=== PATIENT | female | born 1990 | race Caucasian/White ===

== ENCOUNTER 2017-12-07 17:18 | Emergency (ER) | payer SELFPAY ==
[~2017-12-07] VITALS: Ht 167.6 cm; Wt 72.6 kg
[~2017-12-07 17:18] MED LIST: FERR-57 PO; IBP600T1 PO; PREN1TAB39; PREN1TAB39 PO; [UNRECOGNIZED DRUG - CODE]
--- NOTE | 2017-12-07 17:42 | ED GU-Female ---
General Chief Complaint: -Female Stated Complaint: 14 WKS PREG, DIZZY AND CRAMPS Nursing Triage Note: states having yellow vaginal discharge and feels like she is unable to empty bladder times 2 days. states pain was so bad today she "passed out" for a few minutes Nursing Sepsis Screen: No Definite Risk Source: patient Exam Limitations: no limitations History of Present Illness Time seen by provider: 17:40 Initial Comments To ER with reports of being dizzy, abdominal cramping, nausea, urinary frequency but only dribbling a small amount when she goes. She is 14 weeks gestation. Ab1. Denies vaginal bleeding. She also complains of a whitish yellow vaginal discharge Timing/Duration: constant, yesterday Severity/Quality: cramping Location: suprapubic Activities at Onset: none Associated Symptoms: dysuria Allergies and Home Medications Allergies Coded Allergies: No Known Drug Allergies (Unverified , 04/02/09) Home Medications Ferrous Sulfate 325 Mg Tablet, 325 MG PO DAILY, (Reported) Ibuprofen 600 Mg Tab, 600 MG PO Q6H PRN, (Reported) Vits W-Ca,Fe,Fa(<1MG) 1 Each Tablet, 1 TAB PO DAILY, (Reported) Constitutional: see HPI EENTM: see HPI Respiratory: no symptoms reported Cardiovascular: no symptoms reported Genitourinary: see HPI Musculoskeletal: no symptoms reported Skin: no symptoms reported Past Hmdcxid-Nbikuo-Wigryo Hx Patient Social History Alcohol Use: Denies Use Recreational Drug Use: No Smoking Status: Current Everyday Smoker 2nd Hand Smoke Exposure: No Recent Foreign Travel: No Contact w/Someone Who Travel: No Recent Infectious Disease Expo: No Recent Hopitalizations: No (dental problems in 1998) Physical Abuse: No Sexual Abuse: No Mistreated: No Fear: No Immunizations Up To Date Tetanus Booster (TDap): More than 5yrs Surgeries History of Surgeries: Yes Surgeries: Gallbladder Respiratory History of Respiratory Disorde: No Cardiovascular History of Cardiac Disorders: No Neurological History of Neurological Disord: No Reproductive System Hx : 3 Hx Para: 4 Hx Reproductive Disorders: Yes Sexually Transmitted Disease: Yes (chlamydia) Genitourinary History of Genitourinary Disor: No Gastrointestinal History of Gastrointestinal Di: No Musculoskeletal History of Musculoskeletal Dis: No Endocrine History of Endocrine Disorders: No Psychosocial History of Psychiatric Problem: No Suicide Risk Score: 0 Integumentary History of Skin or Integumenta: No Blood Transfusions History of Blood Disorders: No Physical Exam Vital Signs Vital Sign - Last 12Hours 12/07/17 17:27 Temp 97.0 Pulse 81 Resp 18 B/P (MAP) 125/72 (89) Pulse Ox 99 Capillary Refill : Less Than 3 Seconds General Appearance: WD/WN, no apparent distress HEENT: PERRL/EOMI, normal ENT inspection Neck: non-tender, full range of motion Respiratory: normal breath sounds, no respiratory distress, no accessory muscle use Gastrointestinal: normal bowel sounds, non tender, soft Pelvic: other (pelvic exam done with Lily Sorto RN are at the bedside. There is a moderate amount of purulent material coming from the cervix yellowish green in color.) Extremities: normal range of motion, non-tender Neurologic/Psychiatric: alert, normal mood/affect, oriented x 3 Skin: normal color, warm/dry Progress/Results/Core Measures Suspected Sepsis Recent Fever Within 48 Hours: No Infection Criteria Present: None New/Unexplained Altered Menta: No Sepsis Screen: No Definite Risk Sepsis Diagnosis: SIRS Temperature:97.0 Pulse: 81 Respiratory Rate: 18 Laboratory Tests 12/07/17 17:49: White Blood Count 9.7 Blood Pressure 125 /72 Mean: 89 Laboratory Tests 12/07/17 17:49: Creatinine 0.75, Platelet Count 332, Total Bilirubin 0.3 Results/Orders Lab Results Laboratory Tests Test 12/07/17 17:27 12/07/17 17:49 12/07/17 18:45 Range/Units Urine Color YELLOW Urine Clarity VERY CLOUDY H Urine pH 8 5-9 Urine Specific Two Dot 1.015 L 1.016-1.022 Urine Protein NEGATIVE NEGATIVE Urine Glucose (UA) NEGATIVE NEGATIVE Urine Ketones NEGATIVE NEGATIVE Urine Nitrite NEGATIVE NEGATIVE Urine Bilirubin NEGATIVE NEGATIVE Urine Urobilinogen NORMAL NORMAL MG/DL Urine Leukocyte Esterase 1+ H NEGATIVE Urine RBC (Auto) NEGATIVE NEGATIVE Urine RBC NONE /HPF Urine WBC 0-2 /HPF Urine Squamous Epithelial Cells 2-5 /HPF Urine Crystals PRESENT H /LPF Urine Amorphous Sediment LARGE RENÉ PHOSPHATE H /LPF Urine Bacteria NONE /HPF Urine Casts NONE /LPF Urine Mucus NEGATIVE /LPF Urine Culture Indicated NO Urine Opiates Screen NEGATIVE NEGATIVE Urine Oxycodone Screen NEGATIVE NEGATIVE Urine Methadone Screen NEGATIVE NEGATIVE Urine Propoxyphene Screen NEGATIVE NEGATIVE Urine Barbiturates Screen NEGATIVE NEGATIVE Ur Tricyclic Antidepressants Screen NEGATIVE NEGATIVE Urine Phencyclidine Screen NEGATIVE NEGATIVE Urine Amphetamines Screen NEGATIVE NEGATIVE Urine Methamphetamines Screen NEGATIVE NEGATIVE Urine Benzodiazepines Screen NEGATIVE NEGATIVE Urine Cocaine Screen NEGATIVE NEGATIVE Urine Cannabinoids Screen NEGATIVE NEGATIVE White Blood Count 9.7 4.3-11.0 10^3/uL Red Blood Count 3.69 L 4.35-5.85 10^6/uL Hemoglobin 11.7 11.5-16.0 G/DL Hematocrit 32 L 35-52 % Mean Corpuscular Volume 88 80-99 FL Mean Corpuscular Hemoglobin 32 25-34 PG Mean Corpuscular Hemoglobin Concent 36 32-36 G/DL Red Cell Distribution Width 12.6 10.0-14.5 % Platelet Count 332 130-400 10^3/uL Mean Platelet Volume 9.0 7.4-10.4 FL Neutrophils (%) (Auto) 77 H 42-75 % Lymphocytes (%) (Auto) 17 12-44 % Monocytes (%) (Auto) 5 0-12 % Eosinophils (%) (Auto) 0 0-10 % Basophils (%) (Auto) 0 0-10 % Neutrophils # (Auto) 7.5 1.8-7.8 X 10^3 Lymphocytes # (Auto) 1.7 1.0-4.0 X 10^3 Monocytes # (Auto) 0.5 0.0-1.0 X 10^3 Eosinophils # (Auto) 0.0 0.0-0.3 10^3/uL Basophils # (Auto) 0.0 0.0-0.1 10^3/uL Sodium Level 138 135-145 MMOL/L Potassium Level 4.1 3.6-5.0 MMOL/L Chloride Level 109 H 98-107 MMOL/L Carbon Dioxide Level 18 L 21-32 MMOL/L Anion Gap 11 5-14 MMOL/L Blood Urea Nitrogen 9 7-18 MG/DL Creatinine 0.75 0.60-1.30 MG/DL Estimat Glomerular Filtration Rate > 60 BUN/Creatinine Ratio 12 Glucose Level 91 70-105 MG/DL Calcium Level 9.2 8.5-10.1 MG/DL Total Bilirubin 0.3 0.1-1.0 MG/DL Aspartate Amino Transf (AST/SGOT) 14 5-34 U/L Alanine Aminotransferase (ALT/SGPT) 16 0-55 U/L Alkaline Phosphatase 61 40-136 U/L Total Protein 6.5 6.4-8.2 GM/DL Albumin 3.6 3.2-4.5 GM/DL Human Chorionic Gonadotropin, Quant 51335 H <5 MIU/ML My Orders Orders - HEDY REAVES APRN Cbc With Automated Diff (12/07/17 17:23) Comprehensive Metabolic Panel (12/07/17 17:23) Ua Culture If Indicated (12/07/17 17:23) Drug Screen Stat (Urine) (12/07/17 17:23) Hcg,Quantitative (12/07/17 17:23) Wet Prep (12/07/17 18:15) Neisseria Gonorrhea Dna (12/07/17 18:15) Chlamydia Dna (12/07/17 18:15) Genital Culture (12/07/17 18:15) Vital Signs/I&O Vital Sign - Last 12Hours 12/07/17 17:27 Temp 97.0 Pulse 81 Resp 18 B/P (MAP) 125/72 (89) Pulse Ox 99 Capillary Refill : Less Than 3 Seconds Blood Pressure Mean: 89 Progress Note : Progress Note Intrauterine seen at the bedside by me on bedside ultrasound. heart rate 154. Departure Impression Impression: Primary Impression: Vaginal discharge during Disposition: 01 HOME, SELF-CARE Condition: Stable Departure-Patient Inst. Decision time for Depature: 17:42 Referrals: [facility] (PCP) Primary Care Physician Patient Instructions: NO INSTRUCTIONS GIVEN Add. Discharge Instructions: 1. 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 Return to ER for concerns 3. All discharge instructions reviewed with patient and/or family. Voiced understanding. HEDY REAVES APRN Dec 07, 2017 17:42
[2017-12-07 17:44] LABS: BILIRUBIN,URINE NEGATIVE (NEGATIVE); CLARITY,URINE VERY CLOUDY; COLOR,URINE YELLOW; GLUCOSE, URINE (UA) NEGATIVE (NEGATIVE); KETONES,URINE NEGATIVE (NEGATIVE); LEUKOCYTE ESTERASE ,URINE 1+ (NEGATIVE); NITRITE,URINE NEGATIVE (NEGATIVE); PH,URINE 8 (5-9); PROTEIN,URINE NEGATIVE (NEGATIVE); UROBILINOGEN,URINE NORMAL (NORMAL)
[2017-12-07 17:52] LABS: AMORPHOUS SEDIMENT,UR LARGE AMOR PHOSPHATE /LPF; WBC,URINE 0-2 /HPF
[2017-12-07 17:57] LABS: AMPHETAMINE SCREEN, URINE NEGATIVE (NEGATIVE); BARBITURATE SCREEN URINE NEGATIVE (NEGATIVE); BENZODIAZEPINES SCREEN URINE NEGATIVE (NEGATIVE); CANNABINOID SCREEN, URINE NEGATIVE (NEGATIVE); COCAINE SCREEN URINE NEGATIVE (NEGATIVE); METHADONE STAT NEGATIVE (NEGATIVE); METHAMPHETAMINE SCREEN URINE S NEGATIVE (NEGATIVE); OPIATE SCREEN URINE NEGATIVE (NEGATIVE); OXYCODONE STAT NEGATIVE (NEGATIVE); PROPOXYPHENE STAT NEGATIVE (NEGATIVE); TRICYCLIC ANTIDEPRESSANTS SCRE NEGATIVE (NEGATIVE)
[2017-12-07 18:01] LABS: BASOPHILS % (AUTO) 0 % (0-10); EOSINOPHILS % (AUTO) 0 % (0-10); HEMATOCRIT 32 % (35-52); HEMOGLOBIN 11.7 G/DL (11.5-16.0); LYMPHOCYTES # (AUTO) 1.7 X 10^3 (1.0-4.0); LYMPHOCYTES % (AUTO) 17 % (12-44); MEAN CORPUSCULAR HEMOGLOBIN 32 PG (25-34); MEAN CORPUSCULAR HGB CONC 36 G/DL (32-36); MEAN CORPUSCULAR VOLUME 88 FL (80-99); MONOCYTES # (AUTO) 0.5 X 10^3 (0.0-1.0); MONOCYTES % (AUTO) 5 % (0-12); NEUTROPHILS # (AUTO) 7.5 X 10^3 (1.8-7.8); NEUTROPHILS % (AUTO) 77 % (42-75); PLATELET COUNT 332 10^3/uL (130-400); RED BLOOD COUNT 3.69 10^6/uL (4.35-5.85); RED CELL DISTRIBUTION WIDTH 12.6 % (10.0-14.5); WHITE BLOOD COUNT 9.7 10^3/uL (4.3-11.0)
[2017-12-07 18:22] LABS: ALANINE AMINOTRANSFERASE 16 U/L (0-55); ALBUMIN 3.6 GM/DL (3.2-4.5); ALKALINE PHOSPHATASE 61 U/L (40-136); BILIRUBIN,TOTAL 0.3 MG/DL (0.1-1.0); BUN/CREATININE RATIO 12; CALCIUM 9.2 MG/DL (8.5-10.1); CARBON DIOXIDE 18 MMOL/L (21-32); CHLORIDE 109 MMOL/L (98-107); CREATININE SERUM 0.75 MG/DL (0.60-1.30); GFR ESTIMATED > 60; GLUCOSE 91 MG/DL (70-105); POTASSIUM 4.1 MMOL/L (3.6-5.0); SODIUM 138 MMOL/L (135-145); TOTAL PROTEIN 6.5 GM/DL (6.4-8.2)
[2017-12-07] MEDS ORDERED: LIDOCAINE 1% INJ 20 ML (XYLOCAINE) VIAL INJ ONE (19:15)
[2017-12-07] MEDS ORDERED: cefTRIAXone 1 GM (ROCEPHIN) VIAL IM ONE (19:15)
[2017-12-07] MEDS ORDERED: AZITHROMYCIN 250 MG TAB (ZITHROMAX) PO SCH (19:15)
[2017-12-07] MEDS ORDERED: LIDOCAINE 1% INJ 50 ML (XYLOCAINE) VIAL ONE (19:33)
[2017-12-07 19:59] VITALS: BP 124/67
== END 2017-12-07 19:58 | disposition home or self-care (01) ==
LOC: EDUNIT# 17:18 → ER 17:21
DX: O99.89 Other specified diseases and conditions complicating pregnancy, childbirth and the puerperium (principal); N89.8 Other specified noninflammatory disorders of vagina; Z3A.14 14 weeks gestation of pregnancy
CPT/HCPCS: 36415; 80053; 80306; 81000; 84702; 85025; 87070; 87210; 87491; 87591; 99284

== ENCOUNTER → 2017-12-19 | Outpatient (CLI) | payer SELFPAY ==
--- NOTE | 2017-12-19 13:19 | Diagnostic Imaging Report ---
INDICATION: Evaluation for size and dates. TECHNIQUE: Multiple real-time grayscale images were obtained over the gravid uterus. COMPARISON: None. FINDINGS: There is presence of an early viable intrauterine , currently in a breech presentation. Placenta is anterior and without evidence for previa. Normal amount of amniotic fluid appears to be present. Cervical length is 4.7 cm. anatomical assessment is not complete. No definitive abnormality is suggested. Biometrical measurements are as follows: Biparietal 3.37 cm, age 16 weeks 4 days. Head circumference 12.87 cm, age 16 weeks 4 days. Abdominal circumference 11.62 cm, age 17 weeks 3 days. Femur length 2.31 cm, age 17 weeks 0 days. Sonographic estimate age: 17 weeks 0 days. Sonographic estimated date of delivery: 05-29-18. Estimated Weight: 181 gm (+/- 26 gm). LMP percentile: unknown%. heart rate: 152 beats per minute. number: 1 of 1. Maternal adnexa is not imaged. IMPRESSION: Early viable intrauterine with estimated age at 17 weeks 0 days. Sonographic estimated date of delivery of May 29, 2018. Dictated by: Dictated on workstation # [id number]
== END ==
LOC: RAD 10:07
PROVIDERS: ATTEND Family Medicine
DX: Z34.82 Encounter for supervision of other normal pregnancy, second trimester (principal); Z3A.17 17 weeks gestation of pregnancy
CPT/HCPCS: 76805

== ENCOUNTER → 2018-02-04 | Outpatient (CLI) | payer MEDICAID ==
--- NOTE | 2018-02-04 13:30 | Diagnostic Imaging Report ---
INDICATION: Supervision of normal . TECHNIQUE: Multiple real-time grayscale images were obtained over the gravid uterus. COMPARISON: 12/19/2017. FINDINGS: There is a single live fetus in a cephalic presentation. The placenta is anterior. Cervical length is 5.2 cm. The amniotic fluid volume appears within normal limits. survey demonstrates kidneys, bladder, and stomach to be unremarkable. The intracranial structures are unremarkable. There is a four-chamber heart. heart rate was recorded at 143 beats per minute. There is a three-vessel cord with normal cord insertion. The spine is unremarkable. Biometrical measurements are as follows: Biparietal 5.42 cm, age 22 weeks 4 days. Head circumference 20.39 cm, age 22 weeks 4 days. Abdominal circumference 18.63 cm, age 23 weeks 3 days. Femur length 4.59 cm, age 25 weeks 2 days. Sonographic estimate age: 23 weeks 4 days. Sonographic estimated date of delivery: 05/30/2018. Estimated Weight: 646 gm (+/- 94 gm). LMP percentile: 81%. heart rate: 143 beats per minute. number: 1 of 1. IMPRESSION: Single live IUP of approximately 23-24 weeks gestational age demonstrating normal interval growth when compared with prior exam from 12/19/2017. Dictated by: Dictated on workstation # [id number]
== END ==
LOC: RAD 11:43
PROVIDERS: ATTEND Family Medicine
DX: Z34.82 Encounter for supervision of other normal pregnancy, second trimester (principal); Z3A.23 23 weeks gestation of pregnancy
CPT/HCPCS: 76805

== ENCOUNTER 2018-03-17 21:52 | Outpatient (CLI) | payer MEDICAID ==
[~2018-03-17] VITALS: Ht 170.2 cm; Wt 86.2 kg
[2018-03-17 22:07] VITALS: BP 130/79
[2018-03-17 22:21] LABS: BILIRUBIN,URINE NEGATIVE (NEGATIVE); CLARITY,URINE CLEAR; COLOR,URINE YELLOW; GLUCOSE, URINE (UA) NEGATIVE (NEGATIVE); KETONES,URINE NEGATIVE (NEGATIVE); LEUKOCYTE ESTERASE ,URINE 3+ (NEGATIVE); NITRITE,URINE NEGATIVE (NEGATIVE); PH,URINE 6 (5-9); PROTEIN,URINE NEGATIVE (NEGATIVE); UROBILINOGEN,URINE NORMAL (NORMAL)
[2018-03-17 22:35] LABS: AMORPHOUS SEDIMENT,UR RARE AMOR URATES /LPF; BACTERIA,URINE TRACE /HPF
[2018-03-17] MEDS ORDERED: ACET325T38 PO (22:45)
--- NOTE | 2018-03-18 11:50 | Physician Query-Final Dx ---
JUN WOODWARD 03/18/18 1150: Clinic Account Progress/Dx Physician Query: Please give diagnosis Date of Service Mar 17, 2018 at 21:52 MANPREET RICHARD MD 03/19/18 0925: Clinic Account Progress/Dx DIAGNOSIS: Diagnosis 30 week gestation Decreased movement with normal heart tracing and good movement while on Labor and Delivery JUN WOODWARD Mar 18, 2018 11:50 MANPREET RICHARD MD Mar 19, 2018 09:25
[2018-05-08] MEDS ORDERED: RANI150T46 PO (16:51)
[2018-05-21] MEDS ORDERED: DOCU100C37 PO (14:54)
[2018-05-21] MEDS ORDERED: IBUP-844 PO (14:54)
[2018-05-21] MEDS ORDERED: FERR325T18 PO (14:56)
== END 2018-03-17 22:53 | disposition home or self-care (01) ==
LOC: WSo 21:52 → LDRP 21:52 → WSo 22:53
PROVIDERS: ATTEND Family Medicine
DX: O36.8130 Decreased fetal movements, third trimester, not applicable or unspecified (principal); Z3A.30 30 weeks gestation of pregnancy
CPT/HCPCS: 81000; 87088; 99212

== ENCOUNTER 2018-04-04 20:38 | Outpatient (CLI) | payer MEDICAID ==
[~2018-04-04] VITALS: Ht 170.2 cm; Wt 85.0 kg
[~2018-04-04 20:38] MED LIST changes: +ACET325T38 PO
[2018-04-04 21:01] LABS: BILIRUBIN,URINE NEGATIVE (NEGATIVE); CLARITY,URINE SLIGHTLY CLOUDY; COLOR,URINE YELLOW; GLUCOSE, URINE (UA) NEGATIVE (NEGATIVE); KETONES,URINE 1+ (NEGATIVE); LEUKOCYTE ESTERASE ,URINE 2+ (NEGATIVE); NITRITE,URINE NEGATIVE (NEGATIVE); PH,URINE 6 (5-9); PROTEIN,URINE 2+ (NEGATIVE); UROBILINOGEN,URINE NORMAL (NORMAL)
[2018-04-04 21:10] LABS: BACTERIA,URINE TRACE /HPF; SQUAMOUS EPITHELIAL CELL,UR 25-50 /HPF
[2018-04-04 21:49] VITALS: BP 126/76
--- NOTE | 2018-04-07 20:08 | Physician Query-Final Dx ---
SANCHEZ VEGA 04/07/18 2008: Clinic Account Progress/Dx Physician Query: Please give diagnosis Date of Service April 04, 2018 at 20:38 TAL MORGAN DO 04/12/18 0935: Clinic Account Progress/Dx DIAGNOSIS: Diagnosis see note Progress Note: Send to Dr. 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
--- NOTE | 2018-04-14 07:45 | Physician Query-Final Dx ---
ELBERT GOMEZ 04/14/18 0745: Clinic Account Progress/Dx Physician Query: Please give diagnosis Date of Service April 04, 2018 at 20:38 Progress Note: Elbert [phone] TREVOR COOK MD 04/21/18 0728: Clinic Account Progress/Dx DIAGNOSIS: Diagnosis 1. IUP at 32 weeks gestation 2. Passage of mucous (mucous plug possibly) from vagina 3. Amniotic membranes intact 4. non-labor ELBERT GOMEZ April 14, 2018 07:45 TREVOR COOK MD April 21, 2018 07:28
[2018-05-08] MEDS ORDERED: RANI150T46 PO (16:51)
== END 2018-04-04 21:54 | disposition home or self-care (01) ==
LOC: LDRP 20:38 → WSo 20:38
PROVIDERS: ATTEND Family Medicine
DX: O26.893 Other specified pregnancy related conditions, third trimester (principal); N88.8 Other specified noninflammatory disorders of cervix uteri; Z3A.32 32 weeks gestation of pregnancy
CPT/HCPCS: 36415; 81000; 87088; 89060; 99214

== ENCOUNTER 2018-05-08 14:12 | Outpatient (CLI) | payer MEDICAID ==
[~2018-05-08] VITALS: Ht 167.6 cm; Wt 84.4 kg
[2018-05-08 15:12] LABS: HEMOGLOBIN 10.4 G/DL (11.5-16.0); MEAN PLATELET VOLUME 8.5 FL (7.4-10.4); RED BLOOD COUNT 3.35 10^6/uL (4.35-5.85); RED CELL DISTRIBUTION WIDTH 14.5 % (10.0-14.5); WHITE BLOOD COUNT 9.1 10^3/uL (4.3-11.0)
[2018-05-08 15:37] LABS: ALANINE AMINOTRANSFERASE 13 U/L (0-55); ALBUMIN 3.2 GM/DL (3.2-4.5); ALKALINE PHOSPHATASE 114 U/L (40-136); BILIRUBIN,TOTAL 0.3 MG/DL (0.1-1.0); BUN/CREATININE RATIO 10; CALCIUM 8.5 MG/DL (8.5-10.1); CARBON DIOXIDE 17 MMOL/L (21-32); CHLORIDE 109 MMOL/L (98-107); CREATININE SERUM 0.62 MG/DL (0.60-1.30); GFR ESTIMATED > 60; GLUCOSE 77 MG/DL (70-105); POTASSIUM 3.9 MMOL/L (3.6-5.0); SODIUM 137 MMOL/L (135-145)
[2018-05-08 16:24] LABS: BILIRUBIN,URINE NEGATIVE (NEGATIVE); COLOR,URINE YELLOW; GLUCOSE, URINE (UA) NEGATIVE (NEGATIVE); KETONES,URINE NEGATIVE (NEGATIVE); LEUKOCYTE ESTERASE ,URINE 1+ (NEGATIVE); NITRITE,URINE NEGATIVE (NEGATIVE); PH,URINE 6 (5-9); PROTEIN,URINE NEGATIVE (NEGATIVE); UROBILINOGEN,URINE NORMAL (NORMAL)
[2018-05-08 16:25] LABS: CLARITY,URINE CLEAR
[2018-05-08 16:27] LABS: BACTERIA,URINE NEGATIVE /HPF; WBC,URINE RARE /HPF
--- NOTE | 2018-05-08 16:32 | Diagnostic Imaging Report ---
INDICATION: Right abdominal pain. TECHNIQUE: Multiple real-time grayscale images were obtained over the gravid uterus. COMPARISON: 12/19/2017 and 02/04/2018. FINDINGS: The previous OB ultrasound exam of 02/04/2018 noted a single live intrauterine fetus of approximately 23-24 weeks gestation. On this exam, the fetus is again visualized. The fetus is cephalic in presentation. heart motion is noted and a rate of 134 bpm is recorded. There are no obvious abnormalities identified. The biophysical profile score is 8 out of 8 and within normal limits. The growth parameters average 34 weeks 6 days +/- 3.5 weeks. The estimated weight is in the 19th percentile. The placenta is anterior and there is no previa. The amniotic fluid volume is at the lowest end of normal with an ANGELA of 8.0 cm (normal 8-22 cm). During the course of the exam, hydronephrosis of the maternal right kidney was noted. Whether this is secondary to the so-called "hydronephrosis of " or whether there is partial obstruction of the right collecting system is not certain. Clinical follow-up is recommended. IMPRESSION: 1. There is single live fetus of approximately 37 weeks gestation +/- 3.5 weeks. The EDC remains May 29, 2018. 2. There are no obvious abnormalities identified. 3. The biophysical profile score is 8 out of 8 and within normal limits. 4. The growth parameters have progressed as expected since the prior exam tending towards the low side of normal. 5. There is hydronephrosis of the maternal kidney on the right. This is of uncertain etiology. Clinical follow-up is recommended. Biometrical measurements are as follows: Biparietal 8.7 cm, age 35 weeks 3 days. Head circumference 32.5 cm, age 36 weeks 6 days. Abdominal circumference 31.2 cm, age 35 weeks 1 days. Femur length 7.0 cm, age 35 weeks 6 days. Sonographic estimate age: 35 weeks 6 days. Sonographic estimated date of delivery: 06/06/18. Estimated Weight: 2693 gm (+/- 393 gm). LMP percentile: 19%. heart rate: 134 beats per minute. number: 1 of 1. Dictated by: Dictated on workstation # [id number]
[2018-05-08] MEDS ORDERED: RANI150T46 PO ×2 (16:51)
--- NOTE | 2018-05-12 15:44 | Physician Query-Final Dx ---
SANCHEZ VEGA 05/12/18 1543: Clinic Account Progress/Dx Physician Query: Please give diagnosis Date of Service May 08, 2018 at 14:12 GOMEZ GUZMAN DO 05/12/18 1752: Clinic Account Progress/Dx DIAGNOSIS: Diagnosis Supervision of other normal , third trimester Nausea and Vomiting in , third trimester Right Upper Quadrant Abdominal Pain, third Trimester Threatened Labor Decreased Movement SANCHEZ VEGA May 12, 2018 15:43 GOMEZ GUZMAN DO May 12, 2018 17:52
== END 2018-05-08 16:55 | disposition home or self-care (01) ==
LOC: WSo 14:12 → LDRP 14:13 → WSo 16:55
PROVIDERS: ATTEND Family Medicine
DX: O36.8130 Decreased fetal movements, third trimester, not applicable or unspecified (principal); O47.1 False labor at or after 37 completed weeks of gestation; R10.11 Right upper quadrant pain; O21.2 Late vomiting of pregnancy; Z3A.37 37 weeks gestation of pregnancy
CPT/HCPCS: 36415; 76805; 76819; 80053; 81000; 85027; 99213

== ENCOUNTER 2018-05-13 14:04 | Outpatient (CLI) | payer MEDICAID ==
[~2018-05-13 14:04] MED LIST changes: +RANI150T46 PO
[2018-05-13 15:10] VITALS: BP 110/62
--- NOTE | 2018-05-13 18:58 | Diagnostic Imaging Report ---
INDICATION: Small for dates. TECHNIQUE: Multiple real-time grayscale images were obtained over the gravid uterus in various projections. FINDINGS: There is a single live fetus in a vertex presentation. heart rate was recorded at 135 beats per minute. Placenta is anterior. Amniotic fluid index is 11.3 cm. Overall biophysical profile score is normal at 8 out of 8. IMPRESSION: Biophysical profile score of 8 out of 8. Dictated by: Dictated on workstation # [id number]
== END 2018-05-13 15:15 | disposition home or self-care (01) ==
LOC: RAD 14:04
PROVIDERS: ATTEND Family Medicine
DX: O36.5930 Maternal care for other known or suspected poor fetal growth, third trimester, not applicable or unspecified (principal); O28.8 Other abnormal findings on antenatal screening of mother; Z3A.00 Weeks of gestation of pregnancy not specified
CPT/HCPCS: 76819

== ENCOUNTER 2018-05-20 12:10 | Inpatient (IN) | payer MEDICAID ==
[~2018-05-20] VITALS: Ht 170.2 cm; Wt 83.5 kg
[2018-05-20] VITALS (30 sets, daily range): BP systolic 104–142; BP diastolic 56–77
--- OUTSIDE RECORDS SUMMARY | 2018-05-20 12:18 | XMS REPORT ---
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 12822490 Problem Heartburn R12 Active 74910327 Problem Igdbt-eqd-qlpyo fetus, third trimester O36.5930 Active 916779131 Problem Amniotic fluid index borderline low O28.8 Active 77168134 Problem Encounter for supervision of other normal , third trimester Z34.83 Active 11791203 Problem Smoking (tobacco) complicating , third trimester O99.333 Active 454436059 Problem Other specified related conditions, third trimester O26.893 Active 906880896 Problem Nausea and vomiting during O21.9 Active 48159872 ALLERGIES Substance Reaction Event Type Date Status coconut Unknown Non Drug Allergy Nov, Active ENCOUNTERS Encounter Location Date Diagnosis [facility] [id number] [place] [address] [phone] May, [facility] [id number] [place] [address] [phone] May, Encounter for supervision of normal in multigravida in third trimester Z34.83 ; Supervision of with history of infertility in third trimester O09.03 ; 37 weeks gestation of Z3A.37 and Smoking ( tobacco) complicating , third trimester O99.333 [facility] [id number] [place] [address] [id number] May, Wctnr-azf-nyerp fetus, third trimester O36.5930 and Amniotic fluid index borderline low O28.8 [facility] [id number] [place] [address] [phone] May, [address] [id number] [id number] May, Encounter for supervision of other normal , third trimester Z34.83 ; with history of infertility in third trimester O09.03 ; Smoking (tobacco) complicating , third trimester O99.333 ; Other specified related conditions, third trimester O26.893 ; Heartburn R12 ; Nausea and vomiting during O21.9 and Encounter for screening for Streptococcus B Z36.85 [id number] [place] [address] [phone] April, Encounter for supervision of other normal , third trimester Z34.83 ; with history of infertility in third trimester O09.03 ; Smoking (tobacco) complicating , third trimester O99.333 ; Other specified related conditions, third trimester O26.893 ; Heartburn R12 ; Nausea and vomiting during O21.9 ; Other specified related conditions, unspecified trimester O26.899 and Diarrhea, unspecified R19.[address] [place] [address] [id number] April, 32 weeks gestation of Z3A.32 and Normal in third trimester Z34.93 [id number] [place] [address] [phone] April, [id number] [place] [address] [id number] Mar, Acute cystitis during in third trimester O23.13 ; CVA tenderness M54.9 ; Encounter for immunization Z23 and 30 weeks gestation of Z3A.[address] [address] [phone] Mar, Encounter for supervision of other normal , third trimester Z34.83 ; Smoking (tobacco) complicating , third trimester O99.333 ; with history of infertility in third trimester O09.03 ; Other specified related conditions, second trimester O26.892 and Heartburn R12 [address] [place] [address] [phone] Jan, with history of infertility in third trimester O09.03 ; Encounter for supervision of other normal , third trimester Z34.83 and Smoking (tobacco) complicating , third trimester O99.333 [id number] [place] [address] [phone] Jan, with history of infertility in second trimester O09.02 ; complicated by tobacco use in second trimester O99.332 ; Encounter for supervision of other normal , second trimester Z34.82 ; Other specified related conditions, second trimester O26.892 and Heartburn R12 [id number] [address] [phone] [id number] Jan, 2018 Encounter for supervision of other normal , second trimester Z34.82 ; with history of infertility in second trimester O09.02 ; complicated by tobacco use in second trimester O99.332 and Nausea and vomiting during prior to 22 weeks gestation O21.9 [id number] [place] [address] [id number] Dec, Encounter for supervision of other normal , second trimester Z34.82 [id number] [place] [address] [id number] Dec, Encounter for supervision of other normal , second trimester Z34.82 ; with history of infertility in second trimester O09.02 ; complicated by tobacco use in second trimester O99.332 and Nausea and vomiting during prior to 22 weeks gestation O21.9 [id number] [address] [id number] Nov, Encounter for supervision of other normal , first trimester Z34.81 ; Tobacco smoking affecting in first trimester O99.331 and Nausea and vomiting during prior to 22 weeks gestation O21.9 [id number] [address] [phone] Jun, Visit for TB skin test Z11.1 [facility] [id number] [place] [address] [phone] Jan, Dental examination Z01.20 [facility] [id number] [place] [address] [phone] Jul, [facility] [address] [id number] [place] [address] Jul, [facility] [place] [facility] [address] [id number] [place] [address] Jun, [facility] [place] [facility] [address] [id number] [place] [address] May, [facility] [place] [facility] [address] [id number] [place] [address] April, [facility] [place] [facility] [address] [id number] [place] [address] April, [facility] [place] [facility] [address] [id number] [place] [address] April, [facility] [place] [facility] [address] [id number] [place] [address] Nov, [facility] [place] [facility] [address] [id number] [place] [address] Nov, [facility] [place] [facility] [address] [id number] [place] [address] Oct, [facility] [place] [facility] [address] [id number] [place] [address] Oct, [facility] [place] [facility] [address] [id number] [place] [address] 05 Oct, 2009 [facility] [place] [facility] [address] [id number] [place] [address] 14 Sep, 2009 [facility] [place] [facility] [address] [id number] [place] [address] Sep, [facility] [place] [facility] [address] [id number] [place] [address] Jul, [facility] [place] [facility] [address] [id number] [place] [address] May, [facility] [place] [facility] [address] [id number] [place] [address] May, [facility] [address] [facility] [id number] [address] Mar, [facility] [address] [id number] [address] Jan, [facility] [address] [id number] [address] Dec, [facility] [id number] [address] Nov, [facility] [address] [id number] [address] Nov, [facility] [address] [id number] [address] Nov, IMMUNIZATIONS No Known Immunizations SOCIAL HISTORY Never Assessed REASON FOR VISIT OB-intake Karie CASSIYD PLAN OF CARE Activity Details Follow Up 3 Weeks Reason: VITAL SIGNS Height 67 in 2017-11-28 Weight 171 lbs 2017-11-28 Temperature 97.6 degrees Fahrenheit 2017-11-28 Heart Rate 100 bpm 2017-11-28 Respiratory Rate 19 2017-11-28 BMI 26.782 kg/m2 2017-11-28 Blood pressure systolic 124 mmHg 2017-11-28 Blood pressure diastolic 70 mmHg 2017-11-28 MEDICATIONS Medication Instructions Dosage Frequency Start Date End Date Duration Status Zofran 4 MG Orally 3 times a day 2 tablets 8h Nov, 30 day(s) Active Zofran 8 MG Orally every 8 hours as needed 1 tablet Nov, 30 day(s) Active 1 Active RESULTS Name Result Date Reference Range URINE DRUG SCREEN (IN HOUSE) 2017-11-28 Lot # [id number] Exp date 10/2018 Control + COCAINE neg AMPH neg MTD neg THC neg OPIATE neg BENZO neg PCP neg BAR neg OXY neg MAMP neg TCA neg BUP neg MDMA neg PROCEDURES Procedure Date Ordered Result Body Site DRUG TEST PRSMV DIR OPT OBS Nov 28, 2017 INSTRUCTIONS MEDICATIONS ADMINISTERED No Known Medications MEDICAL (GENERAL) HISTORY Type Description Date Surgical History gallbladder removed 01/2014 Surgical History dental surgery age 7
[2018-05-20] MEDS ORDERED: D5 LR IV SOLUTION 1,000 ML IV SCH (12:39)
[2018-05-20] MEDS: OXYTOCIN/NORMAL SALINE 500 ML IV SCH ×2 (13:04→19:30)
[2018-05-20 13:34] LABS: BASOPHILS % (AUTO) 0 % (0-10); EOSINOPHILS % (AUTO) 1 % (0-10); HEMATOCRIT 31 % (35-52); HEMOGLOBIN 10.4 G/DL (11.5-16.0); LYMPHOCYTES % (AUTO) 24 % (12-44); MEAN CORPUSCULAR HEMOGLOBIN 30 PG (25-34); MEAN CORPUSCULAR HGB CONC 34 G/DL (32-36); MEAN CORPUSCULAR VOLUME 90 FL (80-99); MEAN PLATELET VOLUME 8.7 FL (7.4-10.4); MONOCYTES # (AUTO) 0.5 X 10^3 (0.0-1.0); MONOCYTES % (AUTO) 6 % (0-12); NEUTROPHILS # (AUTO) 5.8 X 10^3 (1.8-7.8); NEUTROPHILS % (AUTO) 70 % (42-75); PLATELET COUNT 317 10^3/uL (130-400); RED BLOOD COUNT 3.43 10^6/uL (4.35-5.85); RED CELL DISTRIBUTION WIDTH 14.6 % (10.0-14.5); WHITE BLOOD COUNT 8.4 10^3/uL (4.3-11.0)
[2018-05-20 13:34] LABS: BILIRUBIN,URINE NEGATIVE (NEGATIVE); CLARITY,URINE CLEAR; COLOR,URINE YELLOW; GLUCOSE, URINE (UA) NEGATIVE (NEGATIVE); KETONES,URINE NEGATIVE (NEGATIVE); LEUKOCYTE ESTERASE ,URINE 1+ (NEGATIVE); NITRITE,URINE NEGATIVE (NEGATIVE); PH,URINE 5 (5-9); PROTEIN,URINE 1+ (NEGATIVE); UROBILINOGEN,URINE NORMAL (NORMAL)
[2018-05-20 13:43] LABS: BACTERIA,URINE TRACE /HPF
[2018-05-20] MEDS ORDERED: CATHETER FLUSH 10 ML SYR IV SCH ×2 (14:00→22:00)
[2018-05-20] MEDS ORDERED: LACTATED RINGERS 1,000 ML IV ONE (14:05)
[2018-05-20] MEDS ORDERED: SUFENTA 0.6MCG/ML BUPIVA 0.125 100 ML ONE (14:06)
[2018-05-20] MEDS ORDERED: fentaNYL INJECTION 100 MCG/2 ML AMP ONE (14:31)
[2018-05-20] MEDS ORDERED: BUPIVACAINE 0.25% 30 ML (SENSORCAINE) VIAL ONE (14:31)
[2018-05-20] MEDS ORDERED: LACTATED RINGERS 1,000 ML IV SCH (15:03)
[2018-05-20] MEDS ORDERED: EPIDURAL (SUFENTA 0.6MCG/ML BUPIVA 0.125%) 100 ML BAG EPI PRN (15:15)
[2018-05-20] MEDS ORDERED: diphenhydrAMINE 50 MG/ML INJ (BENADRYL) IV PRN (15:15)
[2018-05-20] MEDS ORDERED: METOCLOPRAMIDE INJ 10 MG/2 ML (REGLAN) IV PRN (15:15)
[2018-05-20] MEDS ORDERED: NALOXONE 0.4 MG/ML 1 ML (NARCAN) VIAL IV PRN ×2 (15:15)
[2018-05-20] MEDS ORDERED: ONDANSETRON 4 MG/2 ML (SDV) Z0FRAN IV PRN (15:15)
[2018-05-20] MEDS ORDERED: LIDOCAINE/EPI 2% 1:200,00 (XYLOCAINE) 10 ML VIAL ONE (19:06)
[2018-05-20] MEDS ORDERED: MISOPROSTOL 100 MCG (CYTOTEC) TAB PR ONE (19:10)
[2018-05-20] MEDS ORDERED: MISOPROSTOL 200 MCG (CYTOTEC) TABLET ONE (19:10)
[2018-05-20] MEDS ORDERED: IBUPROFEN 600 MG (MOTRIN) TAB PO ONE (19:56)
[2018-05-20] MEDS: IBUPROFEN 600 MG (MOTRIN) TAB PO SCH (19:56)
--- NOTE | 2018-05-20 19:58 | History & Physical-OB ---
OB - Chief Complaint & HPI Date/Time Date of Admission: Date of Admission: May 20, 2018 at 12:10 Time Seen by Provider: 17:00 Chief Complaint/History OB-Reason for Admission/Chief: Rupture of Membranes Hx : 4 Hx Para: 2 Hx Last Menstrual Period: 08/26/2017 Expected Date of Delivery: Jun 02, 2018 Gestational Age in Weeks: 38 Gestational Age in Days: 1 Admission Nurse Assessment Rev: Yes Allergies and Home Medications Allergies Coded Allergies: No Known Drug Allergies (Unverified , 04/02/09) Home Medications Acetaminophen 325 Mg Tablet, 325 MG PO PRN, (Reported) Vits W-Ca,Fe,Fa(<1MG) 1 Each Tablet, 1 TAB PO DAILY, (Reported) Ranitidine HCl 150 Mg Tablet, 150 MG PO BID, (Reported) Patient Home Medication List Home Medication List Reviewed: Yes OB - History Hx of Present Care: Yes Ultrasounds: Normal mid trimester US Obstetrical Complications: None Medical Complications: None Information Induced Hypertension: No Maternal Gestational Diabetes: No Hemorrhage: No Obstetrical History Hx : 4 Hx Para: 2 Hx # Term Pregnancies: 2 Hx # Pregnancies: 0 Number of Living Children: 2 Hx Termination: Yes Hx Total # of Abortions (Spona: 0 Hx Multiple Gestation: No Hx Ectopic : No Hx Stillbirth: No Hx Complication: No Hx Induced Hypertens: No Hx Maternal Gestational Diabet: No Hx Hemorrhage: No Delivery History Hx Dystocia: No Hx Forceps Assisted Delivery: No Hx Vacuum Extraction Assisted: No Hx Placenta Abnormality: No Hx Distress: No Hx Large For Gestational Age I: No Hx Small for Gestational Age I: No Hx Section: No Hx Vaginal Delivery Post C-Sec: No Hx Blood Disorders: No Adverse Rxn to Tranfusion: No Patient Past Medical History Secondary Infertility Tobacco Abuse Spontaneous Term Vaginal Delivery x2 Elective Termination of Anemia History of Chlamydia Social History/Family History HIV/AIDS: No Recent Infectious Disease Expo: No Sexually Transmitted Disease: Yes (chlamydia) Alcohol Use: Denies Use Recreational Drug Use: No Smoking Cessation: Current every day smoker 2nd Hand Smoke Exposure: No Immunizations Tetanus Booster (TDap): Less than 5yrs (03/25/18) Rubella: immune RPR/VDRL: Negative GBS Status: Negative HBsAG: Negative OB - Admission Exam Physical Exam Vitals: Vital Signs 05/20/18 05/20/18 05/20/18 05/20/18 14:30 17:30 18:30 19:00 Temp 96.7 Pulse 75 Resp 18 B/P (MAP) 141/60 (87) Pulse Ox 99 O2 Delivery Room Air HEENT: NCAT Heart: Rhythm Normal Lungs: Clear Abdomen: Gravid Extremities: Normal Reflexes: Normal Cervical Dilatation: 6cm Effacement: 75% Station: 0 Membranes: Ruptured Amniotic Fluid: Clear Heart Rate: 120's Accelerations: Accelerations Present Half-Way Variability: Average (6-25) Contractions on Admission: < 5 Minutes Apart Date/Time Contractions Began;: 05/20/18 Frequency of Contractions: irregular Duration: 30+ Intensity: Mild Labs Laboratory Tests Test 05/20/18 13:00 05/20/18 13:25 Range/Units Urine Color YELLOW Urine Clarity CLEAR Urine pH 5 5-9 Urine Specific [place] 1.025 H 1.016-1.022 Urine Protein 1+ H NEGATIVE Urine Glucose (UA) NEGATIVE NEGATIVE Urine Ketones NEGATIVE NEGATIVE Urine Nitrite NEGATIVE NEGATIVE Urine Bilirubin NEGATIVE NEGATIVE Urine Urobilinogen NORMAL NORMAL MG/DL Urine Leukocyte Esterase 1+ H NEGATIVE Urine RBC (Auto) 5+ H NEGATIVE Urine RBC NONE /HPF Urine WBC 2-5 /HPF Urine Squamous Epithelial Cells 10-25 H /HPF Urine Crystals NONE /LPF Urine Bacteria TRACE /HPF Urine Casts NONE /LPF Urine Mucus MODERATE H /LPF Urine Culture Indicated NO White Blood Count 8.4 4.3-11.0 10^3/uL Red Blood Count 3.43 L 4.35-5.85 10^6/uL Hemoglobin 10.4 L 11.5-16.0 G/DL Hematocrit 31 L 35-52 % Mean Corpuscular Volume 90 80-99 FL Mean Corpuscular Hemoglobin 30 25-34 PG Mean Corpuscular Hemoglobin Concent 34 32-36 G/DL Red Cell Distribution Width 14.6 H 10.0-14.5 % Platelet Count 317 130-400 10^3/uL Mean Platelet Volume 8.7 7.4-10.4 FL Neutrophils (%) (Auto) 70 42-75 % Lymphocytes (%) (Auto) 24 12-44 % Monocytes (%) (Auto) 6 0-12 % Eosinophils (%) (Auto) 1 0-10 % Basophils (%) (Auto) 0 0-10 % Neutrophils # (Auto) 5.8 1.8-7.8 X 10^3 Lymphocytes # (Auto) 2.0 1.0-4.0 X 10^3 Monocytes # (Auto) 0.5 0.0-1.0 X 10^3 Eosinophils # (Auto) 0.0 0.0-0.3 10^3/uL Basophils # (Auto) 0.0 0.0-0.1 10^3/uL OB - Assessment/Plan/Diagnosis Assessment Assessment: rupture of membranes Admission Dx Premature Rupture of Membranes Term 38 weeks gestation Hx Infertility complicated by Tobacco Abuse Admission Status: Inpatient Order (span 2 midnights) Reason for Inpatient Admission: Delivery Plan Plan: Other (Augementation) Other Plan Augmentation with pitocin per protocol. Epidural when desired. Anticipate vaginal delivery. GOMEZ GUZMAN DO May 20, 2018 19:58
[2018-05-20] MEDS ORDERED: WITCH HAZEL(TUCKS) 40 EA JAR ONE (20:00)
[2018-05-20] MEDS ORDERED: BENZOCAINE/MENTHOL (DERMOPLAST) 56 ML CAN TP ONE (20:00)
--- NOTE | 2018-05-20 20:16 | OB Labor & Delivery Record ---
L&D History Date of Service Date of Service: May 20, 2018 History Expected Date of Delivery: Jun 02, 2018 Gestational Age in Weeks: 38 Hx : 4 Hx Para: 2 Complications Events: Prematre Rupture Membrane, Routine care Operative Indications (Cesarea: N/A-Vaginal Delivery Intrapartal Events: None L&D Stage1 Stage One Onset of Labor - Date: May 20, 2018 Onset of Labor - Time: 13:00 Duration - Stage I: 5 hours Monitors and Tracing Monitor Mode: External Heart Rate: 120 Monitor Decelerations: Variable Station: -2 Snf Variability: Average (6-10) Presentation: Vertex Vital Signs VS - Last 72 Hours, by Label 05/20/18 05/20/18 05/20/18 05/20/18 12:30 13:00 13:45 14:00 Temp 96.1 Pulse 92 82 98 86 Resp 18 18 18 18 B/P (MAP) 122/75 (91) 124/70 (88) 125/72 (89) 115/61 (79) O2 Delivery Room Air Room Air Room Air Room Air 05/20/18 05/20/18 05/20/18 05/20/18 14:15 14:30 14:40 14:45 Temp 96.7 Pulse 73 75 77 83 Resp 18 18 18 18 B/P (MAP) 108/61 (77) 117/72 (87) 122/73 (89) 120/71 (87) Pulse Ox 100 100 O2 Delivery Room Air Room Air Room Air Room Air 05/20/18 05/20/18 05/20/18 05/20/18 14:50 14:55 15:00 15:15 Pulse 88 84 78 86 Resp 18 18 18 18 B/P (MAP) 116/64 (81) 116/65 (82) 122/66 (84) Pulse Ox 100 100 100 99 O2 Delivery Room Air Room Air Room Air Room Air 05/20/18 05/20/18 05/20/18 05/20/18 15:30 15:45 16:00 16:15 Pulse 67 81 70 75 Resp 18 18 18 18 B/P (MAP) 104/58 (73) 116/60 (78) 116/56 (76) 123/73 (90) Pulse Ox 98 98 99 100 O2 Delivery Room Air Room Air Room Air Room Air 05/20/18 05/20/18 05/20/18 05/20/18 16:30 16:45 17:00 17:15 Pulse 69 65 67 68 Resp 18 18 18 18 B/P (MAP) 116/66 (83) 119/71 (87) 122/71 (88) 128/75 (92) Pulse Ox 99 100 99 100 O2 Delivery Room Air Room Air Room Air Room Air 05/20/18 05/20/18 05/20/18 05/20/18 17:30 17:45 18:00 18:15 Pulse 64 76 77 75 Resp 18 18 18 18 B/P (MAP) 126/58 (80) 135/73 (93) 117/68 (84) 142/77 (98) Pulse Ox 99 O2 Delivery Room Air Room Air Room Air Room Air 05/20/18 05/20/18 05/20/18 18:30 18:45 19:00 Pulse 75 Resp 18 18 18 B/P (MAP) 141/60 (87) O2 Delivery Room Air Room Air Room Air Rupture of Membranes Spontaneous Ruture of Membrane: Yes Amniotic Membrane Rupture Time: 0500 Amniotic Membrane Fluid Desc.: Clear Amniotic Fluid Membrane Tests: Nitrazine Positive (in office) Vaginal Bleeding Description: Normal Show Induction/Anesthesia Epidural Cath Placement - Time: 1446 Progress/Notes forebag ruptured with amnihook [id number], clear fluid noted. L&D Stage2 Stage Two Stage II Date: May 20, 2018 Stage II Time: 18:00 Stage II Duration: 1 hour 2 min Monitors and Tracing Monitor Mode: External Heart Rate: 120 Monitor Accelerations: Non-Uniform Monitor Decelerations: Variable Snf Variability: Average (6-10) Position: Left Occiput Posterior Presentation: Vertex Cord Descript/Complications Cord Vessel Description: 3 Vessels Complications Nuchal x2 Delivery Type Delivery Method: Spontaneous Vaginal Anterior Shoulder: Left Episiotomy/Perineal Laceration Laceraction(s)/Extensions: No Episiotomy Description: None Condition of Delivery Delivery Date & Time: 05/20/18 at 1902 1 minute Comment: 7 5 minute Comment: 9 Condition of Condition of Infant: Living Exam: No Observed Abnormalities Resuscitation Resuscitation: N/A - Spontaneous Resp L&D Stage3 Stage Three Stage III Date: May 20, 2018 Stage III Time: 19:02 Stage III Duration: 5 min Pictocin Pitocin Administration mu/min: 20 Pitocin ml/hr: 20 Pitocin Administration Comment: pitocin increased cytotec 800 mcg for bleeding Placenta Delivery Placenta Delivery: Spontaneous Delivery Summary Summary Total Labor Time 6 hours 7 min Estimated blood loss (mL): 150 Attending at delivery: Dr. Casanova Condition of Delivery Examined: Cervix Examined, Uterus Explored Post Hemorrhage: No Intervention Required none Condition of Mother stable Condition of (s) GOMEZ Angel DO May 20, 2018 20:16
--- NOTE | 2018-05-20 20:22 | OB Labor & Delivery Record ---
Vag Delivery Note Vag Delivery Note Date of Delivery: 05/20/18 Preoperative Diagnosis: Heather Gr is a 27 yr old at 38 1/7 wks gestation who presented to office earlier today with PROM. Admitted, augmented with pitocin and prepped for vaginal delivery Postoperative Diagnosis: Same Surgeon: GOMEZ GUZMAN Anesthesia: Epidural Delivery Type: Spontaneous Vaginal Delivery Findings: Viable female infant, apgars 7,9, weight 7 lb 3 oz Lacerations: none Intact placenta with 3 vessel cord. Nuchal cord x2 - reduced x1 after delivery of head, delivered through second loop, no body cord or shoulder dystocia Cytotec 800 mcg placed for hemorrhage prophylaxis Estimated Blood Loss: 150 ml Complications: None Condition: Stable Description of Procedure: The patient is a who presented with PROM. She was admitted and informed consent was obtained. Her labor course was remarkable for augmentation with pitocin and epidural placement She progressed to complete dilatation and began to push. She was then set up for delivery. The 's head was delivered atraumatically in the LOT position. The shoulders and remainder of the 's body were then delivered without difficulty. Upon delivery the was placed on maternal abdomen and the cord was allowed to pulsate for >60 seconds. The cord was doubly clamped and cut and the was handed off to the pediatric staff. An intact placenta with 3-vessel cord delivered via Garcia and there was found to be minimal bleeding.~ Vigorous fundal massage was performed and the fundus was found to be firm. IV oxytocin was given and 800 mcg cytotec placed. Examination of the vagina and perineum revealed an intact perineum. Following the repair, sponge, instrument and needle counts were correct. Mom and baby were both in stable condition in the labor suite. Vitals - Labs Vital Signs - I&O Vital Signs Date Time Temp Pulse Resp B/P (MAP) Pulse Ox O2 Delivery O2 Flow Rate FiO2 05/20/18 19:00 18 Room Air 05/20/18 18:45 18 Room Air 05/20/18 18:30 75 18 141/60 (87) Room Air 05/20/18 18:15 75 18 142/77 (98) Room Air 05/20/18 18:00 77 18 117/68 (84) Room Air 05/20/18 17:45 76 18 135/73 (93) Room Air 05/20/18 17:30 64 18 126/58 (80) 99 Room Air 05/20/18 17:15 68 18 128/75 (92) 100 Room Air 05/20/18 17:00 67 18 122/71 (88) 99 Room Air 05/20/18 16:45 65 18 119/71 (87) 100 Room Air 05/20/18 16:30 69 18 116/66 (83) 99 Room Air 05/20/18 16:15 75 18 123/73 (90) 100 Room Air 05/20/18 16:00 70 18 116/56 (76) 99 Room Air 05/20/18 15:45 81 18 116/60 (78) 98 Room Air 05/20/18 15:30 67 18 104/58 (73) 98 Room Air 05/20/18 15:15 86 18 122/66 (84) 99 Room Air 05/20/18 15:00 78 18 100 Room Air 05/20/18 14:55 84 18 116/65 (82) 100 Room Air 05/20/18 14:50 88 18 116/64 (81) 100 Room Air 05/20/18 14:45 83 18 120/71 (87) 100 Room Air 05/20/18 14:40 77 18 122/73 (89) 100 Room Air 05/20/18 14:30 96.7 75 18 117/72 (87) Room Air 05/20/18 14:15 73 18 108/61 (77) Room Air 05/20/18 14:00 86 18 115/61 (79) Room Air 05/20/18 13:45 98 18 125/72 (89) Room Air 05/20/18 13:00 82 18 124/70 (88) Room Air 05/20/18 12:30 96.1 92 18 122/75 (91) Room Air Labs Laboratory Tests 05/20/18 13:00: Urine Color YELLOW, Urine Clarity CLEAR, Urine pH 5, Urine Specific [place] 1.025H, Urine Protein 1+H, Urine Glucose (UA) NEGATIVE, Urine Ketones NEGATIVE, Urine Nitrite NEGATIVE, Urine Bilirubin NEGATIVE, Urine Urobilinogen NORMAL, Urine Leukocyte Esterase 1+H, Urine RBC (Auto) 5+H, Urine RBC NONE, Urine WBC 2- 5, Urine Squamous Epithelial Cells 10-25H, Urine Crystals NONE, Urine Bacteria TRACE, Urine Casts NONE, Urine Mucus MODERATEH, Urine Culture Indicated NO 05/20/18 13:25: White Blood Count 8.4, Red Blood Count 3.43L, Hemoglobin 10.4L, Hematocrit 31L, Mean Corpuscular Volume 90, Mean Corpuscular Hemoglobin 30, Mean Corpuscular Hemoglobin Concent 34, Red Cell Distribution Width 14.6H, Platelet Count 317, Mean Platelet Volume 8.7, Neutrophils (%) (Auto) 70, Lymphocytes (%) (Auto) 24, Monocytes (%) (Auto) 6, Eosinophils (%) (Auto) 1, Basophils (%) (Auto) 0, Neutrophils # (Auto) 5.8, Lymphocytes # (Auto) 2.0, Monocytes # (Auto) 0.5, Eosinophils # (Auto) 0.0, Basophils # (Auto) 0.0 GOMEZ GUZMAN DO May 20, 2018 20:22
[2018-05-20] MEDS ORDERED: HYDROcodone/APAP 5 MG/325 MG (LORTAB) TAB PO PRN (20:45)
[2018-05-20] MEDS ORDERED: WITCH HAZEL(TUCKS) 40 EA JAR TOP PRN (20:45)
[2018-05-20] MEDS ORDERED: BENZOCAINE/MENTHOL (DERMOPLAST) 56 ML CAN TP PRN (20:45)
[2018-05-21 00:13] VITALS: BP 119/61
[2018-05-21] MEDS: IBUPROFEN 600 MG (MOTRIN) TAB PO SCH ×3 (04:12→17:40)
[2018-05-21] MEDS: DOCUSATE SODIUM 100 MG (COLACE) CAP PO SCH ×2 (04:12→10:55)
[2018-05-21 06:30] VITALS: BP 118/64
[2018-05-21 06:57] LABS: BASOPHILS % (AUTO) 0 % (0-10); EOSINOPHILS # (AUTO) 0.1 10^3/uL (0.0-0.3); EOSINOPHILS % (AUTO) 1 % (0-10); HEMATOCRIT 29 % (35-52); HEMOGLOBIN 9.7 G/DL (11.5-16.0); LYMPHOCYTES # (AUTO) 2.2 X 10^3 (1.0-4.0); LYMPHOCYTES % (AUTO) 19 % (12-44); MEAN CORPUSCULAR HEMOGLOBIN 31 PG (25-34); MEAN CORPUSCULAR HGB CONC 34 G/DL (32-36); MEAN CORPUSCULAR VOLUME 91 FL (80-99); MEAN PLATELET VOLUME 9.3 FL (7.4-10.4); MONOCYTES # (AUTO) 0.8 X 10^3 (0.0-1.0); MONOCYTES % (AUTO) 7 % (0-12); NEUTROPHILS # (AUTO) 8.1 X 10^3 (1.8-7.8); NEUTROPHILS % (AUTO) 73 % (42-75); PLATELET COUNT 269 10^3/uL (130-400); RED BLOOD COUNT 3.13 10^6/uL (4.35-5.85); RED CELL DISTRIBUTION WIDTH 14.2 % (10.0-14.5); WHITE BLOOD COUNT 11.2 10^3/uL (4.3-11.0)
[2018-05-21 10:55] VITALS: BP 116/57
[2018-05-21] MEDS: PRENATAL VITAMIN 1 EA TAB PO SCH (10:55)
--- NOTE | 2018-05-21 14:51 | Progress Note (SOAP) ---
Subjective Subjective/Events-last exam Afebrile, no acute events. Denies shortness of breath or dizziness. Minimal lochia, pain controlled. okay, slow to latch. Review of Systems Date Seen by Provider: May 21, 2018 Time Seen by Provider: 12:55 Objective Exam Last Set of Vital Signs Vital Signs Date Time Temp Pulse Resp B/P (MAP) Pulse Ox O2 Delivery O2 Flow Rate FiO2 05/21/18 10:55 98.1 74 18 116/57 (76) 98 Room Air Capillary Refill : General: Alert, No Acute Distress Lungs: Clear to Auscultation, Normal Air Movement Heart: Regular Rate, No Murmurs Abdomen: Other (fundus firm below umbilicus, appropriately tender) Neuro: Normal Speech Psych/Mental Status: Mental Status NL Results/Procedures Lab Laboratory Tests 05/21/18 05:32: White Blood Count 11.2H, Red Blood Count 3.13L, Hemoglobin 9.7L, Hematocrit 29L , Mean Corpuscular Volume 91, Mean Corpuscular Hemoglobin 31, Mean Corpuscular Hemoglobin Concent 34, Red Cell Distribution Width 14.2, Platelet Count 269, Mean Platelet Volume 9.3, Neutrophils (%) (Auto) 73, Lymphocytes (%) (Auto) 19, Monocytes (%) (Auto) 7, Eosinophils (%) (Auto) 1, Basophils (%) (Auto) 0, Neutrophils # (Auto) 8.1H, Lymphocytes # (Auto) 2.2, Monocytes # (Auto) 0.8, Eosinophils # (Auto) 0.1, Basophils # (Auto) 0.0 Assessment/Plan Assessment/Plan (1) Spontaneous vaginal delivery Status: Acute Assessment & Plan: Routine care (2) anemia Status: Acute Assessment & Plan: Asymptomatic, hgb 9.7, start iron daily Clinical Quality Measures DVT/VTE Risk/Contraindication: Risk Factor Score Per Nursin RFS Level Per Nursing on Admit: 2=Moderate MANPREET RICHARD MD May 21, 2018 2:51 pm
[2018-05-21] MEDS ORDERED: IBUP-844 PO (14:54)
[2018-05-21] MEDS ORDERED: DOCU100C37 PO (14:54)
[2018-05-21] MEDS ORDERED: FERR325T18 PO (14:56)
[2018-05-21 15:13] VITALS: BP 117/70
[2018-05-21 21:10] VITALS: BP 119/79
[2018-05-22 00:35] VITALS: BP 104/62
[2018-05-22] MEDS: IBUPROFEN 600 MG (MOTRIN) TAB PO SCH ×4 (00:40→14:34)
[2018-05-22 06:15] VITALS: BP 114/71
[2018-05-22] MEDS ORDERED: FERROUS SULF 325 MG (IRON) TAB PO SCH (07:00)
[2018-05-22] MEDS: DOCUSATE SODIUM 100 MG (COLACE) CAP PO SCH ×2 (08:53→12:48)
[2018-05-22] MEDS: PRENATAL VITAMIN 1 EA TAB PO SCH (08:53)
--- NOTE | 2018-05-22 11:03 | Discharge Instructions ---
Discharge Inst-Women's Serv Depart Medications New, Converted or Re-Newed RX: RX on Chart New Medications: Docusate Sodium (Docusate Sodium) 100 Mg Capsule 100 MG PO BID, #60 CAP 0 Refills Ferrous Sulfate (Ferrous Sulfate) 325 Mg Tablet 325 MG PO DAILY@0700, #30 TAB 0 Refills Ibuprofen (Ibu) 600 Mg Tablet 600 MG PO Q6H, #90 TAB 0 Refills Continued Medications: Acetaminophen (Tylenol) 325 Mg Tablet 325 MG PO PRN, TAB Vits W-Ca,Fe,Fa(<1MG) () 1 Each Tablet 1 TAB PO DAILY Discontinued Medications: Ranitidine HCl (Zantac) 150 Mg Tablet 150 MG PO BID, TAB Follow Up/Instructions Goal/Follow Up: Follow up with Dr. Guzman in 6 weeks for visit. Activity Activity: Activity as Tolerated (avoid strenuous activity x 6 weeks) Driving Instructions: You May Drive NO SMOKING: NO SMOKING Nothing Inside Vagina: No Douching, No [place], No Tampons Diet Discharge Diet: Regular Diet Symptoms to Report to : Swelling Increased, Bleeding Excessive, Fever Over 101 Degrees F, Pain/Pressure in Chest, Vaginal Bleeding Increase, Cramps in Feet or Legs, Vaginal Discharge Foul, Dizziness/Fainting, Shortness of Breath For Any Problems or Questions: Contact Your Physician Copies To 1: GOMEZ GUZMAN BETHANY N MD May 21, 2018 2:55 pm
--- NOTE | 2018-05-22 11:05 | Discharge Summary ---
Diagnosis/Chief Complaint Date of Admission May 20, 2018 at 12:10 pm Date of Discharge May 22, 2018 Admission Diagnosis Admission Diagnosis Term intrauterine SROM Blood type A positive Discharge Diagnosis s/p spontaneous vaginal delivery asymptomatic anemia- started iron sulfate daily Chief Complaint/HPI Chief Complaint/HPI OB-Reason for Admission/Chief: Rupture of Membranes Hx : 4 Hx Para: 2 Hx Last Menstrual Period: 08/26/2017 Expected Date of Delivery: Jun 02, 2018 Gestational Age in Weeks: 38 Gestational Age in Days: 1 Discharge Summary-Simple/Stand Procedures Spontaneous vaginal delivery Discharge Physical Examination Allergies: Coded Allergies: coconut (Verified Allergy, Severe, ANAPHYLAXIS, 05/21/18) Vitals & I&Os Vital Sign - Last 12Hours Date Time Temp Pulse Resp B/P (MAP) Pulse Ox O2 Delivery O2 Flow Rate FiO2 05/22/18 06:15 97.7 53 18 114/71 (85) 97 Room Air General Appearance: Alert, No Acute Distress Respiratory: Clear to Auscultation, Normal Air Movement Cardiovascular: Regular Rate, No Murmurs Abdominal: Other (fundus firm at umbilicus) Neuro: Normal Speech Psych/Mental Status: Mental Status NL Hospital Course See final discharge diagnosis. Labs Laboratory Tests Test 05/20/18 13:00 05/20/18 13:25 05/21/18 05:32 Range/Units Urine Color YELLOW Urine Clarity CLEAR Urine pH 5 5-9 Urine Specific [place] 1.025 H 1.016-1.022 Urine Protein 1+ H NEGATIVE Urine Glucose (UA) NEGATIVE NEGATIVE Urine Ketones NEGATIVE NEGATIVE Urine Nitrite NEGATIVE NEGATIVE Urine Bilirubin NEGATIVE NEGATIVE Urine Urobilinogen NORMAL NORMAL MG/DL Urine Leukocyte Esterase 1+ H NEGATIVE Urine RBC (Auto) 5+ H NEGATIVE Urine RBC NONE /HPF Urine WBC 2-5 /HPF Urine Squamous Epithelial Cells 10-25 H /HPF Urine Crystals NONE /LPF Urine Bacteria TRACE /HPF Urine Casts NONE /LPF Urine Mucus MODERATE H /LPF Urine Culture Indicated NO White Blood Count 8.4 11.2 H 4.3-11.0 10^3/uL Red Blood Count 3.43 L 3.13 L 4.35-5.85 10^6/uL Hemoglobin 10.4 L 9.7 L 11.5-16.0 G/DL Hematocrit 31 L 29 L 35-52 % Mean Corpuscular Volume 90 91 80-99 FL Mean Corpuscular Hemoglobin 30 31 25-34 PG Mean Corpuscular Hemoglobin Concent 34 34 32-36 G/DL Red Cell Distribution Width 14.6 H 14.2 10.0-14.5 % Platelet Count 317 269 130-400 10^3/uL Mean Platelet Volume 8.7 9.3 7.4-10.4 FL Neutrophils (%) (Auto) 70 73 42-75 % Lymphocytes (%) (Auto) 24 19 12-44 % Monocytes (%) (Auto) 6 7 0-12 % Eosinophils (%) (Auto) 1 1 0-10 % Basophils (%) (Auto) 0 0 0-10 % Neutrophils # (Auto) 5.8 8.1 H 1.8-7.8 X 10^3 Lymphocytes # (Auto) 2.0 2.2 1.0-4.0 X 10^3 Monocytes # (Auto) 0.5 0.8 0.0-1.0 X 10^3 Eosinophils # (Auto) 0.0 0.1 0.0-0.3 10^3/uL Basophils # (Auto) 0.0 0.0 0.0-0.1 10^3/uL Discharge Instructions to patient/family Please see electronic discharge instructions given to patient. Discharge Medications Reviewed and agree with Discharge Medication list on patient's Discharge Instruction sheet Clinical Quality Measures DVT/VTE Risk/Contraindication: Risk Factor Score Per Nursin RFS Level Per Nursing on Admit: 2=Moderate MANPREET RICHARD MD May 22, 2018 11:05 am
[2018-05-22 12:10] VITALS: BP 129/83
--- NOTE | 2018-05-22 13:28 | Anesthesia-Regional Post-Op ---
Regional Patient Condition Mental Status: Alert, Oriented x3 Circulation: Same as Pre-Op Headache: Absent Sensation: Full Recovery Motor Block: Absent Post Op Complications Complications None Follow Up Care/Instructions Patient Instructions None needed. Anesthesia/Patient Condition Patient is doing well, no complaints, stable vital signs, no apparent adverse anesthesia problems. No complications reported per nursing. KEENAN SOLORZANO CRNA May 22, 2018 13:28
[2018-05-22 16:45] VITALS: BP 128/85
== END 2018-05-22 16:45 | disposition home or self-care (01) | DRG 774 ==
LOC: LDRP 12:10
PROVIDERS: ADMIT Family Medicine; ATTEND Family Medicine
PROC: 10E0XZZ Delivery of Products of Conception, External Approach (ICD-10-PCS; principal; 2018-05-20)
DX: O99.013 Anemia complicating pregnancy, third trimester (principal); O99.03 Anemia complicating the puerperium; D64.9 Anemia, unspecified; O98.313 Other infections with a predominantly sexual mode of transmission complicating pregnancy, third trimester; A56.2 Chlamydial infection of genitourinary tract, unspecified; O69.81X0 Labor and delivery complicated by cord around neck, without compression, not applicable or unspecified; O99.333 Smoking (tobacco) complicating pregnancy, third trimester; F17.210 Nicotine dependence, cigarettes, uncomplicated; Z3A.38 38 weeks gestation of pregnancy; Z37.0 Single live birth
CPT/HCPCS: 36415; 81000; 85025; 86850; 86900; 86901